=== PATIENT | female | born 1960 | race Caucasian/White ===

== ENCOUNTER → 2019-10-14 13:36 | Outpatient (CLI) | payer OTHER, SELFPAY ==
--- NOTE | 2019-10-14 13:45 | CT_ITS ---
STUDY: CT CHEST WITHOUT CONTRAST- LOW DOSE SCREENING PROTOCOL REASON FOR EXAM: Female, 58 years old. Former smoker. 30 pack per year history. No current symptoms of lung cancer or pulmonary infection. Shared decision-making with referring PCP documented in patient''s record. RADIATION DOSAGE (If Supplied By Facility): CTDIvol = ( 2.55 ) mGy, DLP = ( 88.69 ) mGycm TECHNIQUE: Low dose screening CT examination performed from the base of the neck to the upper abdomen. Sagittal and coronal reformatted images performed. Sagittal and coronal MIP images provided. The measurements provided are average, rounded measurements per ACR guidelines. COMPARISON: None. FINDINGS: The lungs are normal. There is no demonstrated pleural abnormality. Normal heart and pericardium. There are calcifications of the coronary arteries. Normal mediastinum. Normal hilar regions. Normal unenhanced pulmonary arteries. Normal aorta arch and descending thoracic aorta. Normal osseous structures. There is no demonstrated abnormality of the visualized upper abdomen. CT/Low Dose CT Lung Screening IMPRESSION: 1. No significant indeterminate incidental findings requiring additional imaging. 2. Incidental findings include calcified coronary artery plaque.. ASSESSMENT CATEGORY: LungRADS 1 - Negative. Continue annual screening with LDCT in 12 months, per established ACR guidelines. Electronically Signed: Sukh Godfrey MD at 13:08 EST Tel , Service support ,
== END ==
PROVIDERS: PCP Nurse Practitioner Primary Care; Referring Provider Internal Medicine Pulmonary Disease; Visit Provider Internal Medicine Pulmonary Disease
DX: Z87.891 Personal history of nicotine dependence (principal)
CPT/HCPCS: G0297

== ENCOUNTER 2021-08-01 06:52 | Day surgery (SDC) | payer OTHER, SELFPAY ==
--- NOTE | 2021-08-01 | COLBX_PTH ---
PATIENT: FRANK NUÑEZ LOC: EN U#:[id number] AGE/SX: 60/F ROOM: RE08/01/[address]: Dr. Sincere Sam DO : 1960 BED: DIS: 08/01/2021 SPEC #: [id number] RECD: 08/01/21 12:38 STATUS: BACILIO RELilian #: [id number] ROSEY: 08/01/21 00:[address]: Sincere Sam DEPT: SURGICAL PATHOLOGY RECD BY: Kilo Díaz ENTERED: 08/01/21 12:39 SP TYPE: COLON BX OTHR DR: Kindra David, SUSTAINABLE COMMUNITIES DESIGNER-C Tissues: A - Ileum, NOS B - COLON BIOPSY Procedures: Surgery Specimen Level IV HEADER OPERATION: Colonoscopy PRE-OP DIAGNOSIS: Lower GI bleed TISSUE SUBMITTED: A ? Terminal ileum biopsies, B ? Random colon biopsies MICROSCOPIC DIAGNOSIS A. Terminal ileum, biopsy: No pathologic change. B. Colon, random biopsy: Hyperplastic polyp. Fragments of benign colonic mucosa. AM:rolanda 08/02/2021 MICROSCOPIC DESCRIPTION Slides are reviewed. GROSS DESCRIPTION A - Received in fixative is one container labeled with the patient's name and designated terminal ileum biopsy. The specimen consists of multiple irregular fragments of light sahni soft tissue that in aggregate measure 1 x 0.2 x 0.1 cm. The specimen is totally submitted in one cassette. B - Received in fixative is one container labeled with the patient's name and designated random colon biopsy. The specimen consists of multiple irregular fragments of light sahni soft tissue that in aggregate measure 2.2 x 0.6 x 0.1 cm. The specimen is totally submitted in one cassette. / AM:rolanda 08/01/21 TC:5 CPT: 77497 x2
[2021-08-01 07:14] VITALS: BP 119/88; PULSE 105; RESP 16; TEMP 36.8; O2SAT 99; BMI 32.4
[2021-08-01] MEDS: Lactated Ringers 1,000 ML 100 ML IV (07:27)
--- NOTE | 2021-08-01 07:46 | PCM.HP.BLA ---
History and Physical Date of Admission: 08/01/21 60 F who presents to the office today for Three weeks ago she had two days of urgency with BM and began having constipation that changed to diarrhea with feelings of lightheadedness, cramping and general upset. Later in the day she had a couple episodes of bloody diarrhea. She feels this may have been related to food poisoning as her also did not feel well. Since this episode she has not had any repeat episode and nothing similar prior to this. Last colonoscopy 2012 with no abnormal results. ROS ENT ENT: Positive for nasal congestion Gastro GI: Positive for change in bowel habits and Blood in stool Psych Psychiatric: Positive for anxiety Exam Const General: cooperative and comfortable Nutritional Appearance: average body habitus and well nourished HENMT Head: normal to inspection Ears: hearing grossly normal bilaterally Nose: external nose normal Face and sinus: normal facial exam Mouth: oral mucosae normal Throat: posterior oropharynx normal Eyes General: appearance normal, both eyes and all related structures Neck Neck: normal visual inspection Chest Chest palpation & inspection: normal inspection of the chest and normal palpation of entire chest wall Resp Effort & Inspection: normal respiratory effort Auscultation: Bilateral: Clear to Auscultation Cardio Palpation: normal PMI Rate: regular rate Rhythm: regular rhythm GI Inspection: normal to inspection Auscultation: normal bowel sounds Percussion: normal to percussion Palpation: no hepatosplenomegaly Skin General: no rashes or lesions noted Neuro General: patient alert Extrem General: normal to inspection Psych Affect: normal affect Assessment and Plan Assessment and Plan (1) Lower GI bleeding: Status: Acute Plan - Dr. Post Friend, DO: The differential diagnosis for lower GI bleeding would include ischemic colitis in the setting of cramping and diarrhea followed by bloody diarrhea. Also differential diagnosis would be ulcerative colitis, less likely diverticular bleed or stercoral ulcer. Also on the differential diagnosis would be hemorrhoidal bleeding. She will undergo a colonoscopy with evaluation of the terminal ileum. She was explained alternatives, risk, benefits including outstanding bleeding, infection, sepsis, perforation, need for emergent and . She will have an ASA of 1. I have re-examined the patient. There are no clinical changes since date of exam.
[2021-08-01 08:20] VITALS: BP 119/88; BP 85/54; PULSE 90; RESP 14; TEMP 36.3; O2SAT 96
--- NOTE | 2021-08-01 08:21 | OP.COLON_ITS ---
Patient Name: Jackelyn Torres Procedure Date: 08/01/2021 7:48 AM Date of : 1960 Age: 60 Procedure: Colonoscopy Indications: Hematochezia Providers: Sincere Sam DO Medicines: See the Anesthesia note for documentation of the administered medications Patient Profile: This is a 60 year old female. Refer to note in patient chart for documentation of history and physical. Last Colonoscopy: several years ago. Complications: No immediate complications. Procedure: Pre-Anesthesia Assessment: - Prior to the procedure, a History and Physical was performed, and patient medications and allergies were reviewed. The patient is competent. The risks and benefits of the procedure and the sedation options and risks were discussed with the patient. All questions were answered and informed consent was obtained. Patient identification and proposed procedure were verified by the physician in the pre-procedure area. Mental Status Examination: alert and oriented. Airway Examination: normal oropharyngeal airway and neck mobility. Respiratory Examination: clear to auscultation. CV Examination: normal. Prophylactic Antibiotics: The patient does not require prophylactic antibiotics. Prior Anticoagulants: The patient has taken no previous anticoagulant or antiplatelet agents. ASA Grade Assessment: II - A patient with mild systemic disease. After reviewing the risks and benefits, the patient was deemed in satisfactory condition to undergo the procedure. The anesthesia plan was to use moderate sedation / analgesia (conscious sedation). Immediately prior to administration of medications, the patient was re-assessed for adequacy to receive sedatives. The heart rate, respiratory rate, oxygen saturations, blood pressure, adequacy of pulmonary ventilation, and response to care were monitored throughout the procedure. The physical status of the patient was re-assessed after the procedure. After I obtained informed consent, the scope was passed under direct vision. Throughout the procedure, the patient's blood pressure, pulse, and oxygen saturations were monitored continuously. The Colonoscope was introduced through the anus and advanced to the terminal ileum. The colonoscopy was performed without difficulty. The patient tolerated the procedure well. The quality of the bowel preparation was good. Moderate Sedation: Moderate (conscious) sedation was administered by the endoscopy nurse and supervised by the endoscopist. The patient's oxygen saturation, heart rate, blood pressure and response to care were monitored. Total physician intraservice time was 15 minutes. Scope In: 7:59:52 AM Scope Withdrawal Time 0 hours 12 minutes 54 seconds Scope Out: 8:15:52 AM Total Procedure Duration Time 0 hours 16 minutes 0 seconds Findings: An anal fissure and mild rectal prolapse was found on perianal exam. The colon (entire examined portion) appeared normal. Biopsies were taken with a cold forceps for histology. Verification of patient identification for the specimen was done. Estimated blood loss was minimal. A scattered area of the terminal ileum was congested. Biopsies were taken with a cold forceps for histology. Estimated blood loss: none. Impression: - Anal fissure found on perianal exam. - The entire examined colon is normal. Biopsied. - Congested mucosa in the terminal ileum. Biopsied. Recommendation: - Discharge patient to home. - Resume previous diet. - Continue present medications. - Await pathology results. - Return to my office in 2 weeks. - Repeat colonoscopy is recommended. The colonoscopy date will be determined after pathology results from today's exam become available for review. Procedure Code(s): --- Professional --- 16878, Colonoscopy, flexible; with biopsy, single or multiple G0500, Moderate sedation services provided by the same physician or other qualified health senior resident care director performing a gastrointestinal endoscopic service that sedation supports, requiring the presence of an independent trained observer to assist in the monitoring of the patient's level of consciousness and physiological status; initial 15 minutes of intra-service time; patient age 5 years or older (additional time may be reported with 88239, as appropriate) CPT copyright 2017 [employer]. All rights reserved. The codes documented in this report are preliminary and upon trouble locator test desk review may be revised to meet current compliance requirements. Sincere Sam DO 08/01/2021 8:21:40 AM This report has been signed electronically. Number of Addenda: 1 Note Initiated On: 08/01/2021 7:48 AM Addendum Number: 1 Addendum Date: 04/26/2022 7:07:47 AM MAC was used instead of moderate sedation for the patient. Sincere Sam DO 04/26/2022 7:07:54 AM This report has been signed electronically.
--- NOTE | 2021-08-01 08:22 | OP.CCLET_ITS ---
04/26/2022 Kindra David Re : Colonoscopy procedure for Jackelyn Torres Dear Joann This procedure was performed on Sunday, August 01, 2021. My impressions and recommendations are as follows: Impressions : - Anal fissure found on perianal exam. - The entire examined colon is normal. Biopsied. - Congested mucosa in the terminal ileum. Biopsied. Recommendations : - Discharge patient to home. - Resume previous diet. - Continue present medications. - Await pathology results. - Return to my office in 2 weeks. - Repeat colonoscopy is recommended. The colonoscopy date will be determined after pathology results from today's exam become available for review. My findings are described in the full procedure note, which is enclosed. If I can be of further assistance, please feel free to contact me at . Sincerely, Sincere Sam, 08/01/2021 8:21:40 AM This report has been signed electronically.
[2021-08-01 08:25] VITALS: BP 119/88; BP 88/62; PULSE 83; RESP 16; O2SAT 95
[2021-08-01 08:30] VITALS: BP 119/88; BP 93/65; PULSE 88; RESP 16; O2SAT 93
[2021-08-01 08:36] VITALS: BP 119/88; BP 99/52; PULSE 86; RESP 16; TEMP 36.2; O2SAT 96
[2021-08-01 08:52] VITALS: BP 119/88
== END 2021-08-01 09:03 | disposition home or self-care (01) ==
LOC: EN 06:53 → AC 06:55
PROVIDERS: PCP Nurse Practitioner Primary Care; Referring Provider Nurse Practitioner Primary Care; Visit Provider Internal Medicine Gastroenterology
PROC: 0DJD8ZZ Inspection of Lower Intestinal Tract, Via Natural or Artificial Opening Endoscopic (ICD-10-PCS; CPT 45378; principal; 2021-08-01 07:55)
DX: K63.5 Polyp of colon (principal); K60.2 Anal fissure, unspecified; K62.3 Rectal prolapse; I10 Essential (primary) hypertension; E78.5 Hyperlipidemia, unspecified; E07.9 Disorder of thyroid, unspecified; G47.30 Sleep apnea, unspecified; F32.A Depression, unspecified; Z79.890 Hormone replacement therapy; Z79.899 Other long term (current) drug therapy; Z78.0 Asymptomatic menopausal state
CPT/HCPCS: 45380; 88305; J7120; J2405